=== PATIENT | female | born 1980 | race African-American/Black ===

== ENCOUNTER 2017-03-09 12:21 | Inpatient (IN) | payer OTHER ==
[2017-03-07 15:46] VITALS: BMI 31.8
[2017-03-09] MEDS ORDERED: ceFAZolin SODIUM 1 GM VIAL IVPB ONE (14:19)
--- NOTE | 2017-03-09 14:46 | HP ---
History & Physical Update - History History: No Change - Physical Physical: No Change - Assessment Currently as noted:: 37 yo with hx/o fibroid uterus, irregular bleeding for open myomectomy - Plan Currently as noted:: 1. Consents reviewed/signed; 2. Ancef cupola operator insulation; 3. TEDs/ SCDs for DVT PPX
[2017-03-09] MEDS ORDERED: VASOPRESSIN 20 UNITS/ML VIAL IV ONE (15:03)
[2017-03-09] MEDS ORDERED: MIDAZOLAM HCL 2 MG/2 ML SINGLE DOSE VIAL ONE ×2 (16:03)
[2017-03-09] MEDS ORDERED: DEXAMETHASONE SOD PHOSPHATE 4 MG/1 ML VIAL ONE (16:11)
[2017-03-09] MEDS ORDERED: ROCURONIUM BROMIDE 50 MG/5 ML VIAL ONE ×2 (16:15)
[2017-03-09] MEDS ORDERED: PROPOFOL 20 ML ONE (16:15)
[2017-03-09] MEDS ORDERED: ceFAZolin SODIUM 1 GM VIAL ONE (16:18)
[2017-03-09] MEDS ORDERED: LABETALOL HCL 5 MG/1 ML (100MG/20 ML VIAL) ONE (16:56)
[2017-03-09] MEDS ORDERED: GLYCOPYRROLATE 0.2 MG/1 ML VIAL ONE (18:55)
[2017-03-09] MEDS ORDERED: NEOSTIGMINE METHYLSULFATE 0.5 MG/ML - 10 ML MDV ONE (18:55)
[2017-03-09] MEDS ORDERED: PROMETHAZINE HCL 25 MG/1 ML VIAL IVPB PRN (19:23)
[2017-03-09] MEDS ORDERED: DEXAMETHASONE SOD PHOSPHATE 4 MG/1 ML VIAL IVPUSH ONE (19:23)
[2017-03-09] MEDS ORDERED: ONDANSETRON 4 MG/2 ML VIAL IVPUSH PRN (19:23)
[2017-03-09] MEDS ORDERED: LACTATED RINGERS SOLUTION 1,000 ML IV SCH (19:30)
[2017-03-09] MEDS ORDERED: HYDROmorphone *PCA* 10MG/50ML DISP.SYRIN PCA SCH (19:30)
[2017-03-09] MEDS ORDERED: BENZOIN/ALOE VERA/STORAX/TOLU 58 ML BOTTLE ONE (19:31)
[2017-03-09] MEDS ORDERED: KETOROLAC TROMETHAMINE 30 MG/1 ML VIAL ONE (19:34)
--- NOTE | 2017-03-09 19:54 | OP ---
Operative Note - Note: Operative Date: 03/09/17 Pre-Operative Diagnosis: adhesions of bowel and bladder to uterus Operation: adhesiolysis - sigmoid colon and bladder off uterus Findings: INTRAOPERATIVE CONSULT - sigmoid colon and bladder adherent to uterus, planes developed anterior and posterior, operation turned back over to HISTORIAN DRAMATIC ARTS Post-Operative Diagnosis: Same as Pre-op Surgeon: Beltran Knott Anesthesiologist/QA CONSULTANT: Navid Rojo Anesthesia: General Estimated Blood Loss (mls): 50 ((my portion only)) Drains & Tubes with Location: White already in place Fluid Volume Replaced (mls): 0 (see anesthesia record) Operative Report Dictated: Yes
[2017-03-09] MEDS ORDERED: HYDROmorphone *PCA* 10MG/50ML DISP.SYRIN PCA ONE (20:31)
[2017-03-09 20:54] LABS: MCH 26.2 pg (25.7-33.7); MCHC 31.9 g/dl (32.0-36.0); MEAN CELL VOLUME 82.1 fl (80-96); MEAN PLT VOLUME 8.1 fl (7.5-11.1); PLATELET COUNT 234 K/MM3 (134-434); RDW 14.9 % (11.6-15.6); WHITE BLOOD COUNT 14.6 K/mm3 (4.0-10.0)
--- NOTE | 2017-03-09 21:59 | OP ---
Operative Note - Note: Operative Date: 03/09/17 Pre-Operative Diagnosis: irregular bleeding, fibroid uterus Operation: exploratory laparotomy, lysis of adhesions Findings: severe dense adhesions from sigmoid colon to anterior and posterior uterus, dense adhesions from bladder to anterior uterus, right fallopian tube identified , hydrosalpinx noted, unable to isolate left adnexa, frozen pelvis. Post-Operative Diagnosis: Same as Pre-op Surgeon: Savanna Washington Controlled Atmospheric Furnace Brazer: Wally Curiel Anesthesiologist/DRY END OPERATOR: Rj Rodriguez (Dr. Rojo) Anesthesia: General Estimated Blood Loss (mls): 500 Drains, Volume Out (mls): 200 Fluid Volume Replaced (mls): 1,700
[2017-03-09] MEDS: LACTATED RINGERS SOLUTION 1,000 ML IV SCH (23:00)
[2017-03-10] MEDS: CEFAZOLIN 2 GM/D5W 50 ML IVPB SCH ×4 (02:15→21:45)
[2017-03-10] MEDS ORDERED: ceFAZolin 2 GRAM PREMIX BAG IVPB SCH (03:00)
[2017-03-10] MEDS: LACTATED RINGERS SOLUTION 1,000 ML IV SCH (03:59)
--- NOTE | 2017-03-10 06:08 | OP ---
DATE OF OPERATION: 03/09/2017 PREOPERATIVE DIAGNOSES: Irregular bleeding, fibroid uterus. POSTOPERATIVE DIAGNOSES: Irregular bleeding, fibroid uterus. SURGERY: Exploratory laparotomy, lysis of adhesion, aborted myomectomy. SURGEON: Savanna Washington MD CORRECTIONAL THERAPY DIRECTOR: Wally Curiel MD INTRAOPERATIVE DIRECTOR TELECOMMUNICATIONS: Beltran Knott MD ANESTHESIOLOGIST: Rj Rodriguez MD and Allison Rojo MD ANESTHESIA: General. ESTIMATED BLOOD LOSS: 500. URINE OUTPUT: 200. FLUIDS REPLACED: 1700. FINDINGS: Intraoperatively were severe dense adhesions from sigmoid colon to anterior and posterior uterus and dense lesion from bladder to the uterus, adhesions from the left pelvic sidewall to the uterus and to the sigmoid colon. Right fallopian tube was identified, found to be hydrosalpinx with blunted fimbriae and unable to isolate the left adnexa. Overall frozen pelvis. PROCEDURE: After consents reviewed and signed, patient was brought to the operating room and anesthesia was found to be adequate. Patient was prepped and draped in the normal sterile fashion. An 11-cm skin incision was made with a knife and carried down to the underlying rectus fascia. Using the Bovie electrocautery, fascia was nicked in midline, extended laterally using the Cotton scissors. The inferior portion of the fascial incision was tented up using Андрей clamps and dissected off the underlying rectus muscle using Cotton scissors. Attention was brought to the superior portion where in a similar fashion was tented up using Андрей clamps, dissected off the underlying rectus muscles using the Cotton scissors. The fascia and rectus muscles were in midline using the knife and the peritoneum was entered sharply using the knife which was extended inferiorly and superiorly using Metzenbaum scissors. Evaluation of the pelvis revealed severe dense adhesions as described above. Intraoperative consult from General Surgery with Dr. Knott was requested where the sigmoid colon was dissected off anteriorly and posteriorly. At this point in time, an evaluation of the abdomen revealed a frozen pelvis and given the extent of the adhesions a myomectomy could not be performed safely without further concern for injury of intraabdominal organs. At this point in time, the decision was made to close and abort the myomectomy procedure. Peritoneum was closed using 2-0 Biosyn in a running fashion. Muscles were reapproximated using 0 Biosyn in an interrupted fashion. The fascia was closed using 0 Vicryl in a running fashion. The subcutaneous fat was closed using 2-0 Vicryl in a running fashion. The skin was reapproximated using 3-0 Vicryl. The patient tolerated the procedure well. Estimated blood loss was 500 mL. Patient was awakened from anesthesia and brought to recovery room in stable condition. Andrei [id number]
--- NOTE | 2017-03-10 07:38 | PN ---
Progress Note (SOAP) - Subjective History of Present Illness: Patient without acute complaints. Tolearting sips of water, without complaints of nausea or vomiting. No ambulation yet. Denies fevers or chills. Denies chest pain, shortness of breath Pain well controlled with PLASTICS SCIENTIST + gottlieb Denies flatus. - Current Medications Current Medications: Active Medications Enoxaparin Sodium (Lovenox -) 40 mg SQ DAILY [facility] Fentanyl (Sublimaze Injection -) 50 mcg IVPUSH [id number] PRN PRN Reason: PAIN Stop: 03/12/17 19:24 Last Admin: 03/09/17 20:25 Dose: 50 mcg Hydromorphone HCl (Dilaudid Wood Flour Miller -) 0 mg PLASTICS SCIENTIST PLASTICS SCIENTIST [facility] PRN Reason: Protocol Stop: 03/16/17 19:23 Last Admin: 03/09/17 23:00 Dose: Not Given Lactated Ringer's (Lactated Ringers Solution) 1,000 mls @ 125 mls/hr IV ASDIR RONNIE Last Admin: 03/10/17 03:59 Dose: 125 mls/hr Cefazolin Sodium/Dextrose (Ancef 2 Gm Premixed Ivpb -) 50 mls @ 100 mls/hr IVPB Q6H-IV [facility]ONNIE Last Admin: 03/10/17 02:15 Dose: 100 mls/hr Promethazine HCl (Phenergan Injection -) 12.5 mg IVPB Q6H PRN PRN Reason: NAUSEA AND/OR VOMITING - Objective Vital Signs: Vital Signs Temperature 97.9 F 03/10/17 06:53 Pulse Rate 80 03/10/17 06:53 Respiratory Rate 20 03/10/17 06:53 Blood Pressure 115/70 03/10/17 06:53 O2 Sat by Pulse Oximetry (%) 100 03/09/17 23:00 Constitutional: Yes: Well Nourished, No Distress, Calm Neck: Yes: Supple Cardiovascular: Yes: Regular Rate and Rhythm Respiratory: Yes: Regular, CTA Bilaterally Gastrointestinal: Yes: Soft, Hypoactive Bowel Sounds, Tenderness (incisional) Peripheral Pulses WNL: Yes Edema: No Wound/Incision: Yes: Clean/Dry Neurological: Yes: Alert, Oriented ...Motor Strength: Yes: WNL Psychiatric: Yes: Alert, Oriented Labs Lab Results: CBC, BMP 03/09/17 20:00 Assessment/Plan 37 yo POD # 1 s/p exploratory laparotomy, lysis of adhesions. 1. Continue routine postoperative care. 2. ID afebrile, will continue to monitor vital signs. 3. Cardiovascular No acute issues 4. Pulmonary Encourage - incentive spirometer 5. Hematology Hemoglobin / Hematocrit pending Will continue to monitor vital signs of anemia Plan to start lovenox for thromboprophylaxis today 6. Urinary urine output adequate overnight; Creatinine pending Will dc gottlieb this afternoon 7. Gastroinestinal no signs of ileus at this time Will advance diet 8. Gynecology - reviewed operative findings, frozen pelvis, multiple dense adhesions requiring general surgery consult. 9. Anticipate discharge home POD # 2, pending able to ambulate, adequate pain control and urinating without issue.
[2017-03-10 07:54] LABS: MCHC 31.6 g/dl (32.0-36.0); MEAN CELL VOLUME 82.3 fl (80-96); MEAN PLT VOLUME 8.1 fl (7.5-11.1); PLATELET COUNT 213 K/MM3 (134-434); RDW 14.7 % (11.6-15.6); WHITE BLOOD COUNT 13.6 K/mm3 (4.0-10.0)
--- NOTE | 2017-03-10 08:58 | PN ---
Progress Note (short form) - Note Progress Note: ANESTHESIOLOGY POST-OP CHECK 37F s/p ex-lap and lysis of adhesions under general anesthesia (aborted uterine myomectomy), POD #1. No acute complaints. Pain 6/10 down to 3/10 with pain meds and tolerable. Denies N/V, tolerating PO liquids - on regular diet. White in place, not yet OOB. Vital Signs Temperature 97.9 F 03/10/17 06:53 Pulse Rate 80 03/10/17 06:53 Respiratory Rate 20 03/10/17 06:53 Blood Pressure 115/70 03/10/17 06:53 O2 Sat by Pulse Oximetry (%) 100 03/09/17 23:00 Active Medications Enoxaparin Sodium (Lovenox -) 40 mg SQ DAILY [facility] Fentanyl (Sublimaze Injection -) 50 mcg IVPUSH [id number] PRN PRN Reason: PAIN Stop: 03/12/17 19:24 Last Admin: 03/09/17 20:25 Dose: 50 mcg Hydromorphone HCl (Dilaudid Binder And Box Builder -) 0 mg REMOTE ADVISOR REMOTE ADVISOR [facility] PRN Reason: Protocol Stop: 03/16/17 19:23 Last Admin: 03/09/17 23:00 Dose: Not Given Lactated Ringer's (Lactated Ringers Solution) 1,000 mls @ 125 mls/hr IV ASDIR RONNIE Last Admin: 03/10/17 03:59 Dose: 125 mls/hr Cefazolin Sodium/Dextrose (Ancef 2 Gm Premixed Ivpb -) 50 mls @ 100 mls/hr IVPB Q6H-IV RONNIE Last Admin: 03/10/17 08:23 Dose: 100 mls/hr Promethazine HCl (Phenergan Injection -) 12.5 mg IVPB Q6H PRN PRN Reason: NAUSEA AND/OR VOMITING Gen: Awake, alert No apparent anesthesia complications, pain controlled on dilaudid REMOTE ADVISOR. - October D/C REMOTE ADVISOR and switch to PO analgesics later today as ling as tolerating PO diet - Continue management as per primary team
[2017-03-10] MEDS: ENOXAPARIN NA (PORCINE) 40 MG/0.4 ML DISP.SYRIN SQ SCH (09:21)
[2017-03-10] MEDS ORDERED: oxyCODONE HCL 5 MG TABLET PO PRN (11:16)
[2017-03-10] MEDS ORDERED: IBUPROFEN 600 MG TABLET (FP) PO PRN (11:16)
[2017-03-10] MEDS: oxyCODONE HCL 5 MG TABLET PO PRN ×2 (14:56→19:02)
--- NOTE | 2017-03-10 15:37 | PN ---
Progress Note (short form) - Note Progress Note: Pt seen briefly in room, about to ambulate to bathroom. Having some pain, CAN OPERATOR was changed to other meds today, but doing ok. Tolerating diet. Voiding but no BM yet. Exam deferred A/P: s/p laparotomy with adhesiolysis, aborted myomectomy OOB/ambulating and tolerating po await bowel function doing well
[2017-03-10] MEDS ORDERED: PT OWN MED DRAWER 7, Y5N ONE (23:34)
[2017-03-11] MEDS: CEFAZOLIN 2 GM/D5W 50 ML IVPB SCH ×2 (02:12→09:43)
[2017-03-11] MEDS: ENOXAPARIN NA (PORCINE) 40 MG/0.4 ML DISP.SYRIN SQ SCH (09:42)
[2017-03-11 10:09] VITALS: BP 132/88; TEMP 98.2
[2017-03-11 10:38] VITALS: PULSE 78
[2017-03-11] MEDS: oxyCODONE HCL 5 MG TABLET PO PRN (10:53)
--- NOTE | 2017-03-11 11:49 | DS ---
Physical Exam-RETAIL SALES CONSULTANT Vital Signs: Vital Signs Temperature 98.2 F 03/11/17 09:00 Pulse Rate 78 03/11/17 10:37 Respiratory Rate 18 03/11/17 09:00 Blood Pressure 132/88 03/11/17 09:00 O2 Sat by Pulse Oximetry (%) 93 L 03/11/17 10:37 Labs: CBC, BMP 03/10/17 06:30 Discharge Summary Reason For Visit: MENORRHAGIA, POSTCOITAL BLEEDING, FIBROIDS UTERUS Current Active Problems Anemia (Acute) Fibroid uterus (Acute) Irregular bleeding (Acute) Procedures: Principal: Exploratory Laparotomy, Lysis of Adhesions Hospital Course: Patient underwent surgery HD# 1 POD # 1 tolerating oral intake, voiding, pain well controlled, passing flatus H/H mild anemia, asymptomatic Stable for DC home POD #2 Condition: Good - Instructions Diet, Activity, Other Instructions: Physical activity Resume your normal everyday activity as tolerated no heavy lifting or exercise until seen by your surgeon. You may walk unlimited rubi of and climb stairs. You may resume driving the car when you feel safe and comfortable behind the wheel. No sexual activity as instructed. Wound care If you have a bandage, leave it on, and keep dry for 48-72 hours. After that time discard the outer bandage. If they are tapes on the skin under the out of bandage leave them in place. They will peel off in the next 7 to 10 days. Do Not Peel them off. You may shower the day after surgery. If there are tapes present on the skin, you may shower over them. Diet There are no dietary restrictions. Eat healthy, high-fiber foods. Drink 6 to 8 glasses of liquid each day. This will assist in keeping your bowels are regular. Pain management You may take Tylenol or acetaminophen or Ibuprofen (for example, Motrin, Advil etc.) from my pain prescription medication is ordered should be taken as prescribed for moderate to severe pain. Call MD for any of the following: Severe pain not relieved by medication Fever of 101 or higher Excessive bleeding or drainage on dressing Inability to urinate Reference #: [id number] Referrals: Savanna Washington MD [Staff Physician] - Disposition: HOME - Home Medications Comprehensive Discharge Medication List: Ambulatory Orders Docusate Sodium [Colace -] 100 mg PO BID PRN #30 capsule 03/11/17 Ibuprofen [Motrin -] 600 mg PO QID #60 tablet 03/11/17 Oxycodone HCl/Acetaminophen [Percocet 5-325 mg Tablet -] 1 - 2 tab PO Q6H #20 tab MDD 4 03/11/17
--- NOTE | 2017-03-11 11:49 | PN ---
Progress Note (SOAP) - Subjective History of Present Illness: Patient without acute complaints. Tolerating oral intake without nausea or vomiting Ambulating, voiding Pain well controlled oral medication Denies fevers or chills. Denies chest pain, shortness of breath Denies flatus. - Current Medications Current Medications: Active Medications Enoxaparin Sodium (Lovenox -) 40 mg SQ DAILY [facility]ON[facility] Last Admin: 03/11/17 09:42 Dose: 40 mg Cefazolin Sodium/Dextrose (Ancef 2 Gm Premixed Ivpb -) 50 mls @ 100 mls/hr IVPB Q6H-IV RON[facility] Last Admin: 03/11/17 09:43 Dose: 100 mls/hr Ibuprofen (Motrin -) 600 mg PO Q6H PRN PRN Reason: FEVER Oxycodone HCl (Roxicodone -) 5 mg PO Q4H PRN PRN Reason: PAIN Last Admin: 03/11/17 05:02 Dose: 5 mg Oxycodone HCl (Roxicodone -) 10 mg PO Q4H PRN PRN Reason: PAIN Last Admin: 03/11/17 10:53 Dose: 10 mg - Objective Vital Signs: Vital Signs Temperature 98.2 F 03/11/17 09:00 Pulse Rate 78 03/11/17 10:37 Respiratory Rate 18 03/11/17 09:00 Blood Pressure 132/88 03/11/17 09:00 O2 Sat by Pulse Oximetry (%) 93 L 03/11/17 10:37 Constitutional: Yes: Well Nourished, No Distress, Calm Cardiovascular: Yes: Regular Rate and Rhythm Respiratory: Yes: Regular, CTA Bilaterally Gastrointestinal: Yes: Normal Bowel Sounds, Soft ....Post : Yes: Uterus firm, Uterus non-tender Peripheral Pulses WNL: Yes Edema: No Wound/Incision: Yes: Well Approximated, Steri Strips ...Motor Strength: Yes: WNL Psychiatric: Yes: Alert, Oriented Labs Lab Results: CBC, BMP 03/10/17 06:30 Assessment/Plan 37 yo POD # 1 s/p exploratory laparotomy, lysis of adhesions. 1. Continue routine postoperative care. 2.Error in Vital Signs recordings - patient is not on 4 L NC per RN 96% RA No compalints of CP/SON 3. Patient stable for discharge home POD # 2, pending able to ambulate, adequate pain control and urinating without issue.
== END 2017-03-11 14:10 | disposition home or self-care (01) | DRG 750 ==
LOC: JSAMEDAYSX 13:15 → J8W 03-10 00:37
PROVIDERS: ADMIT Obstetrics & Gynecology; ATTEND Obstetrics & Gynecology
PROC: 0DNN0ZZ Release Sigmoid Colon, Open Approach (ICD-10-PCS; 2017-03-09)
PROC: 0TNB0ZZ Release Bladder, Open Approach (ICD-10-PCS; 2017-03-09)
PROC: 0WJJ0ZZ Inspection of Pelvic Cavity, Open Approach (ICD-10-PCS; principal; 2017-03-09 14:30)
DX: D25.9 Leiomyoma of uterus, unspecified (principal); K66.0 Peritoneal adhesions (postprocedural) (postinfection); N32.89 Other specified disorders of bladder; N70.11 Chronic salpingitis; Z53.09 Procedure and treatment not carried out because of other contraindication; N92.6 Irregular menstruation, unspecified; D64.9 Anemia, unspecified
CPT/HCPCS: 36415; 84703; 85027; 86850; 86900; 86901; 94010; 94760